=== PATIENT | female | born 1985 | race Caucasian/White ===

== ENCOUNTER 2017-02-10 12:42 | Emergency (ER) | payer OTHER ==
[2017-02-10 12:46] VITALS: BP 117/74
--- NOTE | 2017-02-10 13:00 | ED GENERAL ADULT ---
History of Present Illness General Chief Complaint: Eye Problems Stated Complaint: BLOOD IN EYE FROM PT Source: patient Exam Limitations: no limitations Vital Signs & Intake/Output Vital Signs & Intake/Output Vital Signs Date Time Temp Pulse Resp B/P B/P Pulse O2 O2 Flow FiO2 Mean Ox Delivery Rate 02/10 1246 98.5 118 20 117/74 97 Room Air Allergies Coded Allergies: No Known Allergies (02/10/17) Reconcile Medications Lamotrigine (Lamictal) 200 MG TABLET 1 TAB PO BID EPILEPSY (Reported) Triage Note: PT PRESENTS TO ER FOR BLOOD EXPOSURE. PT STATES SHE WAS DRAWING A FINGER STICK WHEN THE STRIP FLIPPED BACK AND BLOOD WENT INTO HER EYE. Triage Nurses Notes Reviewed? 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 She percent she was drawing the blood and a strip of tape flipped backwards and the blood splattered in her eye. Denies any visual changes. No pain. She irrigated her eye immediately. No history of similar symptoms in the past. Denies any nausea vomiting fevers or chills chest pain or shortness of breath. She is up-to-date with immunizations. No history of hepatitis or HIV. Past History Travel History Traveled to [place] past 21 day No Medical History Any Pertinent Medical History? see below for history Surgical History Surgical History: non-contributory Family History Hx Contributory? No Review of Systems Review of Systems Constitutional: Reports: no symptoms. Comments Review of systems: See HPI, All other systems negative. Constitutional, no chills fever or weight loss HEENT: No visual changes no sore throat no congestion Cardiovascular: No chest pain Skin, no jaundice no rashes Respiratory: No dyspnea cough sputum GI: No nausea no vomiting Muscle skeletal: no back pain, no neck pain, Neurologic: No numbness Immunology: No splenectomy or history of AIDS Physical Exam Physical Exam General Appearance: well developed/nourished, no apparent distress, alert, awake , comfortable Comments: Well-developed well-nourished person in no acute distress HEENT: extraocular motion intact, no nystagmus. Pupils equally round and reactive to light and accommodation. Nose is atraumatic. No conjunctival injection noted bilaterally. No swelling or edema. Neck: Normal inspection Cardiovascular: normal JVP Respiratory: No respiratory distress. Extremity: No edema Neuro: Alert oriented x3 Skin: No appreciable rash on exposed skin, skin is warm and dry. Psych: Mood and affect is normal, memory and judgment is normal. Core Measures ACS in differential dx? No CVA/TIA Diagnosis: No Severe Sepsis Present: No Septic Shock Present: No Progress Differential Diagnoses I considered the following diagnoses in my evaluation of the patient: Exposure to blood-borne pathogen, need for prophylaxis against blood-borne pathogen, needle stick injury, mucous membrane exposure Plan of Care: Orders Procedure Date/time Status HIV EXPOSURE/NEEDLESTICK 02/10 1300 Active HUMAN BETA HCG SCREEN 02/10 1300 Active HEPT C ANTIBODY 02/10 1300 Active HEPT B SURFACE ANTIBODY 02/10 1300 Active GAMMA GLUTAMYL TRANSFERASE 02/10 1300 Active COMPREHENSIVE METABOLIC PANEL 02/10 1300 Active CBC WITHOUT DIFFERENTIAL 02/10 1300 Active TRNSFRASE ASPART AMINO 02/10 1300 Active TRNSFRAS ALANINE AMINO 02/10 1300 Active Laboratory Tests 02/10/17 1312: Sodium Pending, Potassium Pending, Chloride Pending, Carbon Dioxide Pending, Anion Gap Pending, BUN Pending, Creatinine Pending, BUN/Creatinine Ratio Pending , Glucose Pending, Calcium Pending, Total Bilirubin Pending, GGT Pending, AST Pending, ALT Pending, Alkaline Phosphatase Pending, Total Protein Pending, Albumin Pending, Globulin Pending, Albumin/Globulin Ratio Pending, Total Beta HCG Pending, CBC w Diff Pending, WBC Pending, RBC Pending, Hgb Pending, Hct Pending, MCV Pending, MCH Pending, RDW Pending, Plt Count Pending, MPV Pending, PUBS MCHC Pending, Hep Bs Antibody Pending, Hepatitis C Antibody Pending, HIV 1& 2 Antibody Pending Initial ED EKG: none Comments: Needle stick injury blood work was drawn after consent was signed. We will continue to update patient. Departure Departure Time of Disposition: 1320 Disposition: HOME OR SELF CARE Condition: Stable Clinical Impression Primary Impression: Exposure to blood or body fluid Additional Instructions: We will follow up with your labs. Return for worsening symptoms or concerns. you initially declined postexposure prophylaxis. Follow-up with your primary care physician in 6 weeks for repeat blood work. Departure Forms: Customer Survey General Discharge Information Critical Care Note Critical Care Note Critical Care Time: non-applicable
[2017-02-10] MEDS ORDERED: LAMICTAL200 M1 PO (13:10)
[2017-02-10 13:25] LABS: ABSOLUTE BASOPHIL COUNT 0 /CUMM (0.0-0.2); ABSOLUTE EOSINOPHIL COUNT 0.1 /CUMM (0.0-0.7); ABSOLUTE GRANULOCYTE CT 10.1 /CUMM (1.4-6.5); ABSOLUTE LYMPH COUNT 1.6 /CUMM (1.2-3.4); ABSOLUTE MONOCYTE COUNT 0.3 /CUMM (0.10-0.60); BASOPHIL % 0.1 % (0.0-2.0); EOSINOPHIL % 0.9 % (0-5); GRANULOCYTE % 83.6 % (42.2-75.2); HEMATOCRIT 39.6 % (37-47); MEAN CORPUSCULAR HGB 25.5 PG (27.0-31.0); MEAN CORPUSCULAR HGB CONC 31.9 G/DL (33.0-37.0); MEAN CORPUSCULAR VOLUME 79.9 FL (81.0-99.0); MEAN PLATELET VOLUME 9.1 FL (7.4-10.4); PLATELET COUNT 450 /CUMM (130-400); RBC DISTRIBUTION WIDTH 13.8 % (11.5-14.5); RED BLOOD CELL CT 4.96 /CUMM (4.20-5.40); WHITE BLOOD CELL COUNT 12.1 /CUMM (4.8-10.8)
== END 2017-02-10 13:20 ==
LOC: ERH 12:42
PROVIDERS: Physician Assistant
DX: Z77.21 Contact with and (suspected) exposure to potentially hazardous body fluids (principal); X58.XXXA Exposure to other specified factors, initial encounter; Y93.89 Activity, other specified; Y92.9 Unspecified place or not applicable
CPT/HCPCS: 86803; 87389